=== PATIENT | female | born 1985 | race Two or more races ===

== ENCOUNTER → 2018-07-13 | Outpatient (REF) ==
--- NOTE | 2018-07-14 13:49 | RADIOLOGY IMAGING REPORT ---
FACILITY: [facility] - [place] PATIENT NAME: Lia Mar : 1985 MR: [id number] V: [id number] EXAM DATE: ORDERING PHYSICIAN: INGA DEXTER TECHNOLOGIST: Location: [facility] Patient: Lia Mar : 1985 Visit/Account:[id number] Date of Sevice: 07/13/2018 EXAMINATION: CT abdomen without IV contrast CT abdomen with IV contrast CT pelvis without IV contrast CT pelvis with IV contrast HISTORY: Abnormal pelvic ultrasound. TECHNIQUE: Spiral scans were obtained through the abdomen and pelvis before and during injection of nonionic iodinated intravenous contrast. Sagittal and coronal reformatted images are also submitted . One of the following dose optimization techniques was utilized in the performance of this exam: Autom ated exposure control; adjustment of the mA and/or kV according to the patient's size; or use of an i terative reconstruction technique. Specific details can be referenced in the facility's radiology C T exam operational policy. CONTRAST: 75 mL of IV [id number] COMPARISON: The prior pelvic ultrasound is not available. FINDINGS: Lower chest: Negative. Liver / biliary: The gallbladder is either absent or completely collapsed. Otherwise negative. Pancreas: Negative. Spleen: Negative. Adrenal glands: Negative. Kidneys: Negative. Pelvic structures: 10.8 x 9.3 x 7.7 cm cystic mass with enhancing septations adjacent to the left ovary and left upper uterus. Bowel: Normal appendix. Otherwise negative. Peritoneum / retroperitoneum / mesenteries: Mild free fluid in the pelvis. No free air. Vessels: Negative. Lymph nodes: Negative. Musculoskeletal / Body wall: Negative. IMPRESSION: 1. 10.8 x 9.3 x 7.7 cm cystic mass with enhancing septations adjacent to the left ovary and left upp er uterus. Mild free fluid in the pelvis. This could be a benign or malignant cystic ovarian tumor or an exophytic ovarian tumor. Pelvic MRI with IV contrast and gynecologic oncology consultation are recommended. 2. The gallbladder is either absent or completely collapsed. 3. The patient developed itching after receiving IV contrast and should be premedicated prior to rec eiving IV iodinated contrast in the future. Report Dictated By: Eitan Mcmahon MD at 07/14/2018 1:13 PM Report E-Signed By: Eitan Mcmahon MD at 07/14/2018 1:46 PM WSN:[email or web address]
== END ==
LOC: CT 02:25
PROVIDERS: ATTEND Family Medicine
DX: R19.09 Other intra-abdominal and pelvic swelling, mass and lump (principal)
CPT/HCPCS: 74178; Q9967